=== PATIENT | female | born 1970 | race Hispanic/Latino ===

== ENCOUNTER 2019-10-06 09:26 | Emergency (ER) | payer BC ==
--- NOTE | 2019-10-06 09:43 | ER ---
Nurse's Notes [facility] Name: Dominique Sood Age: 49 yrs Sex: Female : 1970 Arrival Date: 10/06/2019 Time: 09:29 Bed 15 Private MD: Diagnosis: Cutaneous abscess of left upper limb;Cellulitis of left upper limb Presentation: 10/05 09:41 Chief complaint: Patient states: abscess to left elbow area X 2 days. Coronavirus iw screen: Patient denies fever greater than 100.4F, cough, shortness of breath, or difficulty breathing. Proceed with normal triage process. Ebola Screen: Patient negative for fever greater than or equal to 101.5 degrees Fahrenheit, and additional compatible Ebola Virus Disease symptoms Patient denies exposure to infectious person. Patient denies travel to an Ebola-affected area in the 21 days before illness onset. No symptoms or risks identified at this time. Initial Sepsis Screen: Does the patient meet any 2 criteria? No. Patient's initial sepsis screen is negative. Does the patient have a suspected source of infection? No. Patient's initial sepsis screen is negative. Risk Assessment: Do you want to hurt yourself or someone else? Patient reports no desire to harm self or others. 09:41 Method Of Arrival: Ambulatory iw 09:41 Acuity: JAGJIT 4 iw Triage Assessment: 09:40 Bite description: bite sustained to palmar aspect of left forearm by unknown, animal rb1 information: vaccination(s) is not applicable. Historical: - Allergies: 09:43 No Known Allergies; iw - Home Meds: 09:43 lisinopril Oral [Active]; amlodipine oral [Active]; iw - PMHx: 09:43 Hypertension; iw - PSHx: 09:43 Tubal ligation; iw - Immunization history:: Adult Immunizations not up to date. - Social history:: Smoking status: Patient denies any tobacco usage or history of. Screenin:40 Abuse screen: Denies threats or abuse. Nutritional screening: No deficits noted. rb1 Tuberculosis screening: No symptoms or risk factors identified. Fall Risk None identified. Assessment: 09:40 General: Appears in no apparent distress. comfortable, Behavior is calm, cooperative, rb1 Denies fever, feeling ill. Pain: Complains of pain in palmar aspect of left forearm Pain currently is 5 out of 10 on a pain scale. Pain began x 2 days. Neuro: Level of Consciousness is awake, alert, obeys commands, Oriented to person, place, time, situation. Cardiovascular: Capillary refill < 3 seconds is brisk in bilateral fingers. Respiratory: Airway is patent Respiratory effort is even, unlabored, Respiratory pattern is regular, symmetrical. GI: No signs and/or symptoms were reported involving the gastrointestinal system. : No signs and/or symptoms were reported regarding the genitourinary system. Derm: Skin pt. reports an insect bite Skin is red, swelling noted at the site. Musculoskeletal: No signs and/or symptoms reported regarding the musculoskeletal system. Vital Signs: 09:41 BP 188 / 116; Pulse 80; Resp 16; Temp 97.6; Pulse Ox 99% on R/A; Weight 113.4 kg; iw Height 5 ft. 5 in. (165.10 cm); Pain 0/10; 09:41 Body Mass Index 41.60 (113.40 kg, 165.10 cm) iw ED Course: 09:29 Patient arrived in ED. ag5 09:29 [facility] Lopez [facility]C is [facility]. kb 09:29 Jefferson Claudio MD is Attending Physician. kb 09:39 Rita Cunha, RN is Primary Nurse. rb1 09:40 Patient has correct armband on for positive identification. Bed in low position. Call rb1 light in reach. Side rails up X 1. Pulse ox on. NIBP on. 09:42 Triage completed. iw 09:44 Arm band placed on. iw 09:54 No provider procedures requiring assistance completed. Patient did not have IV access rb1 during this emergency room visit. Administered Medications: 09:45 Drug: Bactrim (160 mg-800 mg (DS) 1 tablet Route: PO; rb1 09:55 Follow up: Response: Medication administered at discharge. rb1 Outcome: 09:43 Discharge ordered by . kb 09:54 Discharged to home ambulatory. rb1 09:54 Condition: stable 09:54 Discharge instructions given to patient, Instructed on discharge instructions, follow up and referral plans. medication usage, Demonstrated understanding of instructions, follow-up care, medications, Prescriptions given X 1. 09:55 Patient left the ED. rb1 Signatures: Mara Lopez FNP-C FNP-Ave Vega RN RN iw Rita Cunha, RN RN rb1 Denice, Carlton ag5
--- NOTE | 2019-10-06 09:44 | EDPHYS ---
Physician Documentation [facility] Name: Dominique Sood Age: 49 yrs Sex: Female : 1970 Arrival Date: 10/06/2019 Time: 09:29 Bed 15 Private MD: ED Physician Jefferson Claudio HPI: 10/05 09:41 This 49 yrs old Female presents to ER via Unassigned with complaints of Insect kb Bite. 09:41 The patient presents with an abscess of the palmar aspect of left forearm, The patient kb presents with cellulitis of the palmar aspect of left forearm. Description: draining, erythematous, hot, swollen. Onset: The symptoms/episode began/occurred 2 day(s) ago. Possible cause(s): unknown. Associated signs and symptoms: Pertinent positives: drainage, erythema, swelling, Pertinent negatives: foreign body sensation, fever, headache, nausea, shortness of breath, vomiting. Modifying factors: the symptoms are alleviated by nothing, the symptoms are aggravated by pressure, squeezing the lesion and expressing the contents, touching. Severity of symptoms: At their worst the symptoms were mild, moderate, in the emergency department the symptoms are unchanged. The patient has not experienced similar symptoms in the past. The patient has not recently seen a physician. Historical: - Allergies: 09:43 No Known Allergies; iw - Home Meds: :43 lisinopril Oral [Active]; amlodipine oral [Active]; iw - PMHx: 09:43 Hypertension; iw - PSHx: 09:43 Tubal ligation; iw - Immunization history:: Adult Immunizations not up to date. - Social history:: Smoking status: Patient denies any tobacco usage or history of. ROS: 09:40 Constitutional: Negative for fever, chills, and weight loss, Cardiovascular: Negative kb for chest pain, palpitations, and edema, Respiratory: Negative for shortness of breath, cough, wheezing, and pleuritic chest pain, Abdomen/GI: Negative for abdominal pain, nausea, vomiting, diarrhea, and constipation, Back: Negative for injury and pain, MS/Extremity: Negative for injury and deformity, Neuro: Negative for headache, weakness, numbness, tingling, and seizure. 09:40 Skin: Positive for abscess, cellulitis, erythema, swelling, of the palmar aspect of left forearm. Exam: 09:40 Constitutional: This is a well developed, well nourished patient who is awake, alert, kb and in no acute distress. Head/Face: Normocephalic, atraumatic. Chest/axilla: Normal chest wall appearance and motion. Nontender with no deformity. No lesions are appreciated. Cardiovascular: Regular rate and rhythm with a normal S1 and S2. No gallops, murmurs, or rubs. Normal PMI, no JVD. No pulse deficits. Respiratory: Lungs have equal breath sounds bilaterally, clear to auscultation and percussion. No rales, rhonchi or wheezes noted. No increased work of breathing, no retractions or nasal flaring. Abdomen/GI: Soft, non-tender, with normal bowel sounds. No distension or tympany. No guarding or rebound. No evidence of tenderness throughout. MS/ Extremity: Pulses equal, no cyanosis. Neurovascular intact. Full, normal range of motion. Neuro: Awake and alert, GCS 15, oriented to person, place, time, and situation. Cranial nerves II-XII grossly intact. Motor strength 5/5 in all extremities. Sensory grossly intact. Cerebellar exam normal. Normal gait. 09:40 Skin: abscess, that is small, of the palmar aspect of left forearm, with drainage, with surrounding cellulitis, that is mild. Vital Signs: 09:41 BP 188 / 116; Pulse 80; Resp 16; Temp 97.6; Pulse Ox 99% on R/A; Weight 113.4 kg; iw Height 5 ft. 5 in. (165.10 cm); Pain 0/10; 09:41 Body Mass Index 41.60 (113.40 kg, 165.10 cm) iw MDM: 09:33 Patient medically screened. kb 09:39 Data reviewed: vital signs, nurses notes. Data interpreted: Pulse oximetry: on room air kb is 100 %. Interpretation: normal. Counseling: I had a detailed discussion with the patient and/or guardian regarding: the historical points, exam findings, and any diagnostic results supporting the discharge/admit diagnosis, the need for outpatient follow up, a family practitioner, to return to the emergency department if symptoms worsen or persist or if there are any questions or concerns that arise at home. 09:44 ED course: Pt reports "I haven't taken my blood pressure medicine yet so I'm sure it is kb myles high." Pt is asymptomatic of BP, educated to take bp medications when she gets home. . Administered Medications: 09:45 Drug: Bactrim (160 mg-800 mg (DS) 1 tablet Route: PO; rb1 09:55 Follow up: Response: Medication administered at discharge. rb1 Disposition: 18:39 Co-signature as Attending Physician, Jefferson Claudio MD I agree with the assessment and danika plan of care. Disposition: 10/06/19 09:43 Discharged to Home. Impression: Cutaneous abscess of left upper limb, Cellulitis of left upper limb. - Condition is Stable. - Discharge Instructions: Skin Abscess, [id number], Cellulitis, Adult, [id number]. - Prescriptions for Bactrim DS 800- 160 mg Oral Tablet - take 1 tablet by ORAL route every 12 hours for 10 days; 20 tablet. - Medication Reconciliation Form, Thank You Letter, Antibiotic Education, Prescription Opioid Use form. - Follow up: Emergency Department; When: As needed; Reason: Worsening of condition. Follow up: Private Physician; When: 2 - 3 days; Reason: Recheck today's complaints, Continuance of care, Re-evaluation by your physician. Signatures: Mara Lopez, ARMATURE BALANCER-C ARMATURE BALANCER-Ckb Jefferson Claudio MD MD cha Williams, Irene, HEIDI GORDON Rita Cunha, HEIDI RN rb1 Corrections: (The following items were deleted from the chart) 09:55 09:43 10/06/2019 09:43 Discharged to Home. Impression: Cutaneous abscess of left upper rb1 limb; Cellulitis of left upper limb. Condition is Stable. Forms are Medication Reconciliation Form, Thank You Letter, Antibiotic Education, Prescription Opioid Use. Follow up: Emergency Department; When: As needed; Reason: Worsening of condition. Follow up: Private Physician; When: 2 - 3 days; Reason: Recheck today's complaints, Continuance of care, Re-evaluation by your physician. kb
[2019-10-06] MEDS ORDERED: SMZ./TMP. 800/160 MG TABLET ONE (09:47)
[2019-10-06 10:03] VITALS: BP 188/116; TEMP 97.6; O2SAT 99
== END 2019-10-06 09:55 | disposition home or self-care (01) ==
LOC: ER 09:26
DX: L02.414 Cutaneous abscess of left upper limb (principal); L03.114 Cellulitis of left upper limb; I10 Essential (primary) hypertension; Z79.899 Other long term (current) drug therapy
CPT/HCPCS: 99283

== ENCOUNTER 2021-10-22 21:08 | Emergency (ER) | payer BC, OTHER ==
[2021-10-22] MEDS ORDERED: BUPIVACAINE 0.5% PF 10 ML VIAL ONE (22:43)
[2021-10-22] MEDS ORDERED: HYDROCODONE/APAP 10/325 TAB ONE (22:43)
[2021-10-22] MEDS ORDERED: LIDOCAINE 1% 20 ML MDV ONE (22:44)
--- NOTE | 2021-10-22 23:27 | ER ---
Nurse's Notes [facility] Name: Dominique Sood Age: 51 yrs Sex: Female : 1970 Arrival Date: 10/22/2021 Time: 21:10 Bed 28 Private MD: Diagnosis: Cutaneous Abscess of the Scalp Presentation: 10/22 22:37 Chief complaint: Patient states: "I have a bite to the back of my head". Coronavirus as6 screen: At this time, the client does not indicate any symptoms associated with coronavirus-19. Ebola Screen: No symptoms or risks identified at this time. Initial Sepsis Screen: Does the patient meet any 2 criteria? No. Patient's initial sepsis screen is negative. Does the patient have a suspected source of infection? No. Patient's initial sepsis screen is negative. Risk Assessment: Do you want to hurt yourself or someone else? Patient reports no desire to harm self or others. Onset of symptoms was October 20, 2021. 22:37 Method Of Arrival: Ambulatory as6 22:37 Acuity: JAGJIT 4 as6 Triage Assessment: 22:39 Bite description: bite sustained to occipital area by an unknown animal, animal as6 information: vaccination(s) is not applicable. General: Appears uncomfortable, Behavior is calm, cooperative. Pain: Complains of pain in scalp. Derm: Abscess located on occipital area is golf ball sized. 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 - Social history:: Smoking status: Patient denies any tobacco usage or history of. Screenin/18 00:10 Abuse screen: Denies threats or abuse. Denies injuries from another. Nutritional tw5 screening: No deficits noted. Tuberculosis screening: No symptoms or risk factors identified. Fall Risk None identified. Assessment: 00:10 Derm: Skin is intact, Skin is pink, warm \\T\\ dry. tw5 Vital Signs: 10/22 22:37 BP 226 / 116; Pulse 75; Resp 18 S; Temp 97.8(O); Pulse Ox 99% on R/A; Weight 95.25 kg as6 (R); Height 5 ft. 5 in. (165.10 cm) (R); Pain 8/10; 22:37 Body Mass Index 34.95 (95.25 kg, 165.10 cm) as6 ED Course: 21:10 Patient arrived in ED. ja2 22:33 Ritchie Carrion PA is PHCP. as6 22:33 Patrice Oneill MD is Attending Physician. as6 22:39 Triage completed. as 22:40 Arm band placed on. as 23:27 Boy Kuhn MD is Referral Physician. [facility] 10/23 00:11 Patient has correct armband on for positive identification. 00:11 Assist provider with I \\T\\ D: of an abscess on. Patient did not have IV access during this emergency room visit. Administered Medications: 10/22 22:58 Drug: [place] (HYDROcodone-acetaminophen) 10 mg-325 mg 1 tabs Route: PO; jb4 10/23 00:09 Follow up: Response: No adverse reaction; Pain is decreased; RASS: Alert and Calm (0) 10/22 22:58 Drug: Marcaine (bupivacaine) (0.5 %) 1 application {Note: Administered by ER provider.} jb4 Volume: 10 ml; Route: Infiltration; 10/23 00:09 Follow up: Response: No adverse reaction 10/22 22:59 Drug: Lidocaine (1 %) 1 application {Note: administered by ER provider.} Volume: 20 ml; jb4 Route: Infiltration; 10/23 00:09 Follow up: Response: No adverse reaction 00:09 Drug: Bactrim (trimethoprim-sulfamethoxazole) (160 mg-800 mg (DS) 1 tablet Route: PO; 00:09 Follow up: Response: No adverse reaction; Medication administered at discharge. :09 Drug: Doxycycline 100 mg Route: PO; 00:10 Follow up: Response: No adverse reaction; Medication administered at discharge. Outcome: 10/22 23:27 Discharge ordered by . [facility] 10/23 00:11 Discharged to home ambulatory. Condition: improved Discharge instructions given to patient, Instructed on discharge instructions, follow up and referral plans. medication usage, Demonstrated understanding of instructions, follow-up care, medications, Prescriptions given X 3. 00:11 Patient left the ED. tw5 Signatures: Ritchie Carrion PA PA jmm Bryson, James, RN RN jb4 Naomy Child Tiffany tw5 Pan Angulo RN RN as6
--- NOTE | 2021-10-22 23:28 | EDPHYS ---
Physician Documentation [facility] Name: Dominique Sood Age: 51 yrs Sex: Female : 1970 Arrival Date: 10/22/2021 Time: 21:10 Bed 28 Private MD: ED Physician Patrice Oneill HPI: 10/22 23:19 This 51 yrs old Female presents to ER via Ambulatory with complaints of Insect jmm Bite. 23:19 the patient presents with a swollen area of the scalp and occipital area. Onset: The jmm symptoms/episode began/occurred gradually, 3 day(s) ago. Possible cause(s): unknown. Associated signs and symptoms: Pertinent positives: swelling, Pertinent negatives: fever. Modifying factors: the symptoms are alleviated by nothing, the symptoms are aggravated by nothing. This is a 51 year old female with a history of htn that presents to the ED with complaints of swelling to her scalp/neck. Denies fever. . 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 - Social history:: Smoking status: Patient denies any tobacco usage or history of. ROS: 23:19 Constitutional: Negative for fever, chills, and weight loss, Cardiovascular: Negative jmm for chest pain, palpitations, and edema, Respiratory: Negative for shortness of breath, cough, wheezing, and pleuritic chest pain. 23:19 Skin: Positive for erythema, swelling. 23:19 All other systems are negative. Exam: 23:19 Constitutional: This is a well developed, well nourished patient who is awake, alert, jmm and in no acute distress. 23:19 Eyes: EOMI, no conjunctival erythema appreciated ENT: Moist Mucus Membranes Neck: Trachea midline, Supple Chest/axilla: Normal chest wall appearance and motion. Cardiovascular: Regular rate and rhythm. No edema appreciated Respiratory: Normal respirations, no respiratory distress appreciated Abdomen/GI: Non distended, soft Back: Normal ROM 23:19 Head/face: abscess noted to the right scalp. 23:19 Skin: abscess noted to the right side of the scalp/neck. 23:19 Neuro: Orientation: is normal, Mentation: is normal, Memory: is normal. 23:19 Psych: Behavior/mood is pleasant, cooperative. Vital Signs: 22:37 BP 226 / 116; Pulse 75; Resp 18 S; Temp 97.8(O); Pulse Ox 99% on R/A; Weight 95.25 kg as6 (R); Height 5 ft. 5 in. (165.10 cm) (R); Pain 8/10; 22:37 Body Mass Index 34.95 (95.25 kg, 165.10 cm) as6 Procedures: 23:25 I \T\ D: Incision and drainage was performed for an abscess of the scalp Prepped with [facility] Betadine, Anesthetized with 2 ml's 1% Lidocaine. Incised with #11 blade. Drained moderate amount purulent fluid. Packed with iodoform gauze, Dressing: sterile 4x4 gauze, the patient tolerated the procedure well. MDM: 22:50 Patient medically screened. [facility] 23:25 Data reviewed: vital signs, nurses notes. Counseling: I had a detailed discussion with sterling the patient and/or guardian regarding: the historical points, exam findings, and any diagnostic results supporting the discharge/admit diagnosis, the need for outpatient follow up, to return to the emergency department if symptoms worsen or persist or if there are any questions or concerns that arise at home. 23:26 ED course: Patient is alert and non toxic in appearance in the ED. Patient given wound [facility] infection return precautions. Patient understood and agrees with the plan of care. . Administered Medications: 22:58 Drug: [place] (HYDROcodone-acetaminophen) 10 mg-325 mg 1 tabs Route: PO; jb4 10/23 00:09 Follow up: Response: No adverse reaction; Pain is decreased; RASS: Alert and Calm (0) tw5 10/22 22:58 Drug: Marcaine (bupivacaine) (0.5 %) 1 application {Note: Administered by ER provider.} jb4 Volume: 10 ml; Route: Infiltration; 10/23 00:09 Follow up: Response: No adverse reaction tw5 10/22 22:59 Drug: Lidocaine (1 %) 1 application {Note: administered by ER provider.} Volume: 20 ml; jb4 Route: Infiltration; 10/23 00:09 Follow up: Response: No adverse reaction 00:09 Drug: Bactrim (trimethoprim-sulfamethoxazole) (160 mg-800 mg (DS) 1 tablet Route: PO; 00:09 Follow up: Response: No adverse reaction; Medication administered at discharge. 00:09 Drug: Doxycycline 100 mg Route: PO; 00:10 Follow up: Response: No adverse reaction; Medication administered at discharge. Disposition: 01:24 Co-signature as Attending Physician, Patrice Oneill MD. rn Disposition Summary: 10/22/21 23:27 Discharge Ordered Location: Home [facility] Condition: Stable [facility] Diagnosis - Cutaneous Abscess of the Scalp [facility] Followup: [facility] - With: Boy Kuhn MD - When: 2 - 3 days - Reason: Recheck today's complaints, Continuance of care, Re-evaluation by your physician Discharge Instructions: - Discharge Summary Sheet [facility] - Incision and Drainage, Care After jm Forms: - Medication Reconciliation Form [facility] - Thank You Letter [facility] - Antibiotic Education [facility] - Prescription Opioid Use [facility] Prescriptions: - Ultracet 37.5-325 mg Oral Tablet - take 1 tablet by ORAL route every 6 hours - for up to 5 days; do not exceed 8 jmm tablets per day.; 12 tablet; Refills: 0, Product Selection Permitted - Doxycycline Hyclate 100 mg Oral Tablet - take 1 tablet by ORAL route every 12 hours; 20 tablet; Refills: 0, Product [facility] Selection Permitted - Bactrim DS 800-160 mg Oral Tablet - take 1 tablet by ORAL route every 12 hours for 10 days; 20 tablet; Refills: 0, [facility] Product Selection Permitted Signatures: Ritchie Carrion PA PA m Patrice Oneill MD MD rn Bryson, James RN RN jb4 Emeli Osuna tw5 Pan Angulo RN RN as6
[2021-10-23] MEDS ORDERED: SMZ./TMP. 800/160 MG TABLET ONE (00:07)
[2021-10-23] MEDS ORDERED: DOXYCYCLINE 100 MG CAP PO ONE (00:08)
[2021-10-23 01:45] VITALS: BP 226/116; TEMP 97.8; O2SAT 99
== END 2021-10-23 00:11 | disposition home or self-care (01) ==
LOC: ER 21:08
PROC: 0H90XZZ Drainage of Scalp Skin, External Approach (ICD-10-PCS; principal; 2021-10-23)
DX: L02.811 Cutaneous abscess of head [any part, except face] (principal); I10 Essential (primary) hypertension; Z88.6 Allergy status to analgesic agent
CPT/HCPCS: 99283

== ENCOUNTER 2024-06-21 16:50 | Emergency (ER) | payer OTHER, SELFPAY ==
[2024-06-21 17:54] LABS: SARS-CoV-2 Antigen CONTROL BLUE LINE VIS/BG OK; SARS-CoV-2 Antigen Rapid Res Negative (Negative)
--- NOTE | 2024-06-21 17:58 | RAD REPORT ---
Procedure: Chest Single View HISTORY: Cough COMPARISON: 2011 FINDINGS: The lungs appear clear of acute infiltrate. No significant pleural effusion noted. The heart is normal size. IMPRESSION: No acute abnormality is displayed.
--- NOTE | 2024-06-21 18:24 | ER ---
Nurse's Notes [facility] Name: Dominique Sood Age: 53 yrs Sex: Female : 1970 Arrival Date: 06/21/2024 Time: 16:50 Bed 6 Private MD: Diagnosis: Influenza due to identified novel influenza A virus Presentation: 06/21 17:03 Chief complaint: Patient states: Cough, chest congestion, soreness when coughing x 1 jl7 day. Hx of htn, supposed to take Lisinopril but stopped it and now does not have insurance. Coronavirus screen: At this time, the client does not indicate any symptoms associated with coronavirus-19. Ebola Screen: No symptoms or risks identified at this time. Initial Sepsis Screen: Does the patient meet any 2 criteria? No. Patient's initial sepsis screen is negative. Does the patient have a suspected source of infection? No. Patient's initial sepsis screen is negative. Risk Assessment: Do you want to hurt yourself or someone else? Patient reports no desire to harm self or others. Onset of symptoms was June 20, 2024. 17:03 Method Of Arrival: Ambulatory jl7 17:03 Acuity: JAGJIT 3 jl7 Triage Assessment: 17:14 General: Appears in no apparent distress. uncomfortable, Behavior is calm, cooperative, jl7 appropriate for age. Pain: Complains of pain in chest Pain does not radiate. Pain currently is 6 out of 10 on a pain scale. Quality of pain is described as "sore". Neuro: No deficits noted. Cardiovascular: Patient's skin is warm and dry. Respiratory: Reports cough that is Airway is patent Respiratory effort is even, unlabored, Respiratory pattern is regular, symmetrical. Derm: Skin is pink, warm \\T\\ dry. 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 - Infectious Disease History:: Denies. - Social history:: Smoking status: Patient denies any tobacco usage or history of. Screenin:43 [facility] ED Fall Risk Assessment (Adult) History of falling in the last 3 months, bp including since admission No falls in past 3 months (0 pts) Confusion or Disorientation No (0 pts) Intoxicated or Sedated No (0 pts) Impaired Gait No (0 pts) Mobility Assist Device Used No (0 pt) Altered Elimination No (0 pt) Score/Fall Risk Level 0 - 2 = Low Risk Oriented to surroundings. Abuse screen: Denies threats or abuse. Denies injuries from another. Nutritional screening: No deficits noted. Tuberculosis screening: No symptoms or risk factors identified. Assessment: 18:19 Reassessment: CHARGER OPERATOR HELPER Mara at bedside discussing results and POC. jl7 Vital Signs: 17:03 BP 187 / 107; Pulse 86; Resp 18; Temp 98.2; Pulse Ox 94% ; Weight 117.93 kg; Height 5 jl7 ft. 5 in. ; Pain 6/10; 18:43 BP 168 / 93; Pulse 88; Resp 18; Pulse Ox 97% ; bp 17:03 Body Mass Index 43.27 (117.93 kg, 165.1 cm) jl7 17:03 Pain Scale: Adult jl7 ED Course: 16:52 Patient arrived in ED. mr 17:03 Natalie Lamb, RN is Primary Nurse. jl7 17:14 Triage completed. jl7 17:14 Arm band placed on right wrist. jl7 17:38 CXR XRAY In Process Unspecified. EDMS 17:58 Mara Lopez, [facility] kb 17:59 Ander Riojas MD is Attending Physician. kb 18:43 Patient has correct armband on for positive identification. Provided Education on: na. bp 18:43 No provider procedures requiring assistance completed. Patient did not have IV access bp during this emergency room visit. Administered Medications: 18:43 Drug: Oseltamivir PO 75 mg PO once Route: PO; bp 18:43 Follow up: Response: No adverse reaction bp Medication: 18:43 VIS not applicable for this client. bp Outcome: 18:23 Discharge ordered by . kb 18:43 Discharged to home ambulatory, bp 18:43 Condition: stable 18:43 Discharge instructions given to patient, Instructed on discharge instructions, follow up and referral plans. medication usage, Demonstrated understanding of instructions, follow-up care, medications, Prescriptions given X 1, 18:45 Patient left the ED. bp Signatures: Dispatcher [employer] EDMS Mara Lopez, WIRE WRAPPER MACHINE OPERATOR-C WIRE WRAPPER MACHINE OPERATOR-Angela Llanes, Reg Reg mr Natalie Lamb, RN RN jl7 Yves Rodriguez, HEIDI RN bp
--- NOTE | 2024-06-21 18:24 | EDPHYS ---
Physician Documentation [facility] Name: Dominique Sood Age: 53 yrs Sex: Female : 1970 Arrival Date: 06/21/2024 Time: 16:50 Bed 6 Private MD: ED Physician Ander Riojas HPI: 06/21 18:19 This 53 yrs old Female presents to ER via Ambulatory with complaints of kb Congestion, Fever, Cough. 18:19 Pt is a 53 year old female who presents for cough, congestion, achiness that started kb yesterday. Reports chills, unknown fever. States she was exposed to some coworkers that have pneumonia. . 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 - Infectious Disease History:: Denies. - Social history:: Smoking status: Patient denies any tobacco usage or history of. ROS: 18:21 Constitutional: As per HPI kb Exam: 18:21 Constitutional: This is a well developed, well nourished patient who is awake, alert, kb and in no acute distress. Head/Face: Normocephalic, atraumatic. ENT: Moist Mucous membranes Cardiovascular: Regular rate Respiratory: Respirations even and unlabored. No increased work of breathing. Talking in full sentences Abdomen/GI: Soft, non-tender. No distention Skin: Warm, dry with normal turgor. Normal color. MS/ Extremity: Pulses equal, no cyanosis. Neurovascular intact. Full, normal range of motion. Neuro: Awake and alert, GCS 15, oriented to person, place, time, and situation. Vital Signs: 17:03 BP 187 / 107; Pulse 86; Resp 18; Temp 98.2; Pulse Ox 94% ; Weight 117.93 kg; Height 5 jl7 ft. 5 in. ; Pain 6/10; 18:43 BP 168 / 93; Pulse 88; Resp 18; Pulse Ox 97% ; bp 17:03 Body Mass Index 43.27 (117.93 kg, 165.1 cm) jl7 17:03 Pain Scale: Adult jl7 MDM: 17:59 Medical Screening Exam initiated kb 18:22 Differential diagnosis: flu, covid, uri, pneumonia. Data reviewed: vital signs, nurses kb notes. I considered the following discharge prescriptions or medication management in the emergency department I discussed and recommended Over The Counter medications, Antibiotics: At this time antibiotics are not recommended. Counseling: I had a detailed discussion with the patient and/or guardian regarding the historical points, exam findings, and any diagnostic results supporting the discharge/admit diagnosis, lab results, radiology results, the need for outpatient follow up, a family practitioner, to return to the emergency department if symptoms worsen or persist or if there are any questions or concerns that arise at home. 06/21 17:10 Order name: SARS-COV-2 Antigen Rapid; Complete Time: 18:15 bp 06/21 17:10 Order name: Flu; Complete Time: 18:15 bp 06/21 17:10 Order name: CXR XRAY; Complete Time: 18:15 bp Administered Medications: 18:43 Drug: Oseltamivir PO 75 mg PO once Route: PO; bp 18:43 Follow up: Response: No adverse reaction bp Disposition Summary: 06/21/24 18:23 Discharge Ordered Notes: Location: Home kb Condition: Stable kb Diagnosis - Influenza due to identified novel influenza A virus kb Followup: kb - With: Private Physician - When: 2 - 3 days - Reason: Recheck today's complaints, Continuance of care, Re-evaluation by your physician Followup: kb - With: Emergency Department - When: As needed - Reason: Worsening of condition Discharge Instructions: - Discharge Summary Sheet kb - Influenza, Adult, [id number] kb Forms: - Medication Reconciliation Form kb - Antibiotic Education kb - Prescription Opioid Use kb - Patient Portal Instructions kb - Leadership Thank You Letter kb - Work release form ll1 Prescriptions: - Tamiflu 75 mg Oral capsule - take 1 tablet ORAL route every 12 hours for 5 days; 9 tablet; Refills: 0, kb Product Selection Permitted Signatures: Dispatcher [employer] Mara Macedo, Natalie Perdomo RN RN jl7 Yves Rodriguez, RN RN bp Corrections: (The following items were deleted from the chart) 17:10 17:10 SARS-COV-2 Antigen Rapid+I.LAB.BRZ ordered. EDMS EDMS 17:10 17:10 Influenza Screen (A \T\ B)+BA.LAB.BRZ ordered. EDMS EDMS 17:10 17:10 Chest Single View+RAD.RAD.BRZ ordered. EDMS EDMS 18:23 18:19 Pt is a 53 year old female who presents for cough, congestion, achiness that kb started yesterday. Reports chills, unknown fever. . kb
[2024-06-21] MEDS ORDERED: OSELTAMIVIR 75 MG CAP PO ONE (18:36)
[2024-06-21 18:56] VITALS: TEMP 98.2
[2024-06-21 19:00] VITALS: BP 168/93; O2SAT 97
== END 2024-06-21 18:45 | disposition home or self-care (01) ==
LOC: ER 16:50
DX: J10.1 Influenza due to other identified influenza virus with other respiratory manifestations (principal); Z11.52 Encounter for screening for COVID-19
CPT/HCPCS: 36415; 71045; 87804; 87811; 99283